=== PATIENT | male | born 1955 | race Caucasian/White ===

== ENCOUNTER 2019-01-20 13:24 | Emergency (ER) | payer BC, MEDICAID, OTHER ==
[2019-01-20 14:21] VITALS: BP 136/73
--- NOTE | 2019-01-20 14:54 | UC ---
Back Pain HPI - HPI Summary HPI Summary: 63-year-old male comes in with a chief complaint of sacral buttock and bilateral posterior leg pain. This started about one week ago. Patient had 2 days of constipation and then he had a bowel movement. The bowel movement was not particularly large or hard. He has had blood in the toilet paper for about 3 days after having a bowel movement. He's had pain in his sacral area bilateral buttock and bilateral hamstring area ever since having that bowel movement. Denies any anterior abdominal pain. Reports she's been having normal bowel movements or since. No urinary symptoms. The pain is worse with pushing on it and also bending forward. No weakness or numbness. Denies any testicular pain or scrotal pain. - History of Current Complaint Chief Complaint: UCGI Stated Complaint: PERSONAL Time Seen by Provider: 01/20/19 14:28 Pain Intensity: 8 - Allergies/Home Medications Allergies/Adverse Reactions: Allergies Allergy/AdvReac Type Severity Reaction Status Date / Time Penicillins Allergy Unknown Verified 01/20/19 14:17 Reaction Details Home Medications: Home Medications Ibuprofen TAB* [Advil TAB*] 400 mg PO Q6H PRN 01/20/19 [History Confirmed ] PMH/Surg Hx/FS Hx/Imm Hx Previously Healthy: Yes - Surgical History Surgical History: Yes Surgery Procedure, Year, and Place: Left Inguinal Herniorrhapy, 2011, [place]; Right Knee Arthroscopy, ~2010, [place]; Right Inguinal Herniorrhaphy, 2009, [place] - Family History Known Family History: Positive: Non-Contributory - Social History Alcohol Use: None Substance Use Type: None Smoking Status (MU): Never Smoked Tobacco Review of Systems All Other Systems Reviewed And Are Negative: Yes Constitutional: Positive: Negative Skin: Positive: Negative Eyes: Positive: Negative ENT: Positive: Negative Respiratory: Positive: Negative Cardiovascular: Positive: Negative Gastrointestinal: Positive: Other - see hpi Genitourinary: Positive: Negative. Negative: Dysuria, Hematuria Motor: Positive: Negative Neurovascular: Positive: Negative Musculoskeletal: Positive: Other: - see hpi Neurological: Positive: Negative Psychological: Positive: Negative Is Patient Immunocompromised?: No Physical Exam Triage Information Reviewed: Yes Appearance: Well-Appearing, No Pain Distress, Well-Nourished Vital Signs: Initial Vital Signs Temp 98.6 F 01/20/19 14:10 Pulse 80 01/20/19 14:10 Resp 16 01/20/19 14:10 BP 136/73 01/20/19 14:10 Pulse Ox 100 01/20/19 14:10 Vital Signs Reviewed: Yes Eye Exam: Normal Eyes: Positive: Conjunctiva Clear Neck: Positive: Supple Respiratory: Positive: Lungs clear, Normal breath sounds, No respiratory distress Cardiovascular: Positive: RRR Abdomen Description: Positive: Nontender, Soft. Negative: CVA Tenderness (R), CVA Tenderness (L) Bowel Sounds: Positive: Present Musculoskeletal: Positive: Strength Intact, ROM Intact, Other: - On palpation the location of the pain is over the sacrum into the buttocks and into the bilateral hamstrings. Full strength normal sensation. No rash. There is no protruding hemorrhoid. On palpation around the anus there is no tenderness to palpation. Neurological Exam: Normal Neurological: Positive: Alert, Muscle Tone Normal Psychological Exam: Normal Psychological: Positive: Age Appropriate Behavior Skin Exam: Normal Back Pain Course/Dx - Course Course Of Treatment: Patient Name: HIRO RUSSELL Medical Record#: [id number] Ordering Physician: Savage Valdez MD Acct.#: [id number] : 1955 Age: 63 Sex: M Location: [facility] Exam Date: 01/20/19 144 ADM Status: [facility] ER Order Information: CT ABD/PEL W/O Accession Number: [id number] CPT: 47031 INDICATION: Sacral and bilateral hip pain, blood in the stool. COMPARISON: There are no relevant prior studies available for comparison. TECHNIQUE: A CT scan of the abdomen and pelvis was performed without intravenous and without oral contrast. Contiguous axial sections were obtained from the lung bases through the symphysis pubis. Images were reconstructed in the coronal and sagittal planes. FINDINGS: LUNG BASES: The lung bases are clear. No pleural effusion is present. LIVER: The liver is normal in size. No significant focal abnormality is seen on this noncontrast study. GALLBLADDER: The gallbladder appears contracted. No calcified gallstones are seen. BILE DUCTS: No intra or extrahepatic ductal distention is seen. SPLEEN: The spleen is normal in size without significant focal abnormality. PANCREAS: The pancreas is normal in size. No ductal distention or calcifications are seen. ADRENAL GLANDS: The adrenal glands are normal in size. KIDNEYS: The kidneys are normal in size. No renal calculi or hydronephrosis is seen. AORTA: The aorta is normal in caliber without calcific plaque visualized. LYMPH NODES: No significantly enlarged lymph nodes are seen. BOWEL: The stomach is mildly distended with food debris. The small bowel colon appear nondistended. The appendix is not well visualized. There is no evidence for inflammatory change in the right lower quadrant. There are scattered diverticula within the colon. There is no evidence for diverticulitis or colitis. There is a large amount retained stool present throughout the colon. PELVIC ORGANS: No bladder wall thickening is seen. The prostate gland is enlarged measuring 5.4 cm in transverse dimension. PERITONEUM: No free intraperitoneal air or fluid is seen. BONES: There is a mild lumbar scoliosis convex toward the left side. There is moderate bilateral osteoarthritic change in the hips left greater than right. No fracture is seen. IMPRESSION: 1. NO EVIDENCE FOR ACUTE INTRA-ABDOMINAL ABNORMALITY. 2. LARGE AMOUNT OF RETAINED STOOL CONSISTENT WITH CONSTIPATION. 3. MODERATE BILATERAL OSTEOARTHRITIC CHANGE IN THE HIPS LEFT GREATER THAN RIGHT. <Electronically signed by Antony Mcfarlane MD in [place]> 01/20/[address] report with the patient. Both of the hips have arthritic changes. For the hips the plan is to follow-up with orthopedics. Further continued low back pain is can take ibuprofen. On the CT also showed a large amount of stool. For the constipation patient's can continue drinking lots of fluids and continue with fiber. We also discussed using Fleet Enema at home and perhaps adding something like prune juice. For the GI bleed which appears to be more hemorrhoid at this time as it's bright red blood on the toilet paper the plan is to follow-up with GI as the patient is 63 and half he's having any bleeding it may be appropriate to have a colonoscopy. Patient is going to get reevaluated sooner if worse or any other questions or concerns. - Differential Dx/Diagnosis Provider Diagnosis: Constipation, Low back pain, Rectal bleeding, Hip pain, bilateral Discharge - Sign-Out/Discharge Documenting (check all that apply): Patient Departure All imaging exams completed and their final reports reviewed: Yes - Discharge Plan Condition: Stable Disposition: HOME Patient Education Materials: Acute Low Back Pain (ED), Constipation (ED), Rectal Bleeding (ED), Hip Pain (ED) Referrals: Luis Felipe Quinn MD [Medical Doctor] - Aubrey Olivier DO [Doctor of Osteopathy] - [facility] [place] PH[facility]ICIAN REFERRAL [Outside] Additional Instructions: FOLLOW UP WITH YOUR PRIMARY CARE DOCTOR. FOLLOW UP WITH ORTHOPEDICS, DR QUINN, FOR YOUR HIP PAIN. FOLLOW UP WITH GASTROENTEROLOGY, DR OLIVIER, FOR YOUR RECTAL BLEEDING AND CONSTIPATION. GO TO THE EMERGENCY DEPARTMENT IF YOUR CONDITION WORSENS; PAIN, FEVER, WEAKNESS , NUMBNESS, DIFFICULTY CONTROLLING BOWEL OR BLADDER, YOU FEEL ILL, MORE BLOOD IN YOUR STOOL OR ANY QUESTIONS OR CONCERNS. - Billing Disposition and Condition Condition: STABLE Disposition: Home
== END 2019-01-20 15:58 | disposition home or self-care (01) ==
LOC: UCCORT 13:24
DX: K59.00 Constipation, unspecified (principal); M54.5 Low back pain; K62.5 Hemorrhage of anus and rectum; M25.551 Pain in right hip; M25.552 Pain in left hip; Z88.0 Allergy status to penicillin
CPT/HCPCS: 74176; 99202; G0463